=== PATIENT | female | born 1970 | race African-American/Black ===

== ENCOUNTER 2016-08-02 10:38 | Emergency (ER) | payer MEDICAID ==
[~2016-08-02] VITALS: Ht 165.1 cm; Wt 82.0 kg
[~2016-08-02 10:38] MED LIST: FLUT50DI; LORA5TAB8 PO; SIMV10TA6 PO
[2016-08-02 10:47] VITALS: BP 144/81
== END 2016-08-02 12:44 | disposition home or self-care (01) ==
LOC: ER 11:13
DX: K08.89 Other specified disorders of teeth and supporting structures (principal); R05 Cough; F17.210 Nicotine dependence, cigarettes, uncomplicated; E78.00 Pure hypercholesterolemia, unspecified; F12.10 Cannabis abuse, uncomplicated; R07.0 Pain in throat; H92.03 Otalgia, bilateral; Z98.890 Other specified postprocedural states
CPT/HCPCS: 71020; 93005; 99284

== ENCOUNTER 2017-03-15 08:40 | Emergency (ER) | payer MEDICAID ==
[~2017-03-15] VITALS: Ht 165.1 cm; Wt 77.0 kg
[2017-03-15] MEDS ORDERED: ALBUTEROL (0.5%) 2.5MG/0.5ML NEB HHN ONE ×2 (09:30→10:30)
[2017-03-15] MEDS ORDERED: PREDNISONE 20MG TABLET PO ONE (09:45)
[2017-03-15 12:11] VITALS: BP 132/67
== END 2017-03-15 12:00 | disposition home or self-care (01) ==
LOC: ER 08:46
DX: J40 Bronchitis, not specified as acute or chronic (principal); E78.00 Pure hypercholesterolemia, unspecified; F12.10 Cannabis abuse, uncomplicated; J84.10 Pulmonary fibrosis, unspecified; Z98.890 Other specified postprocedural states; Z88.3 Allergy status to other anti-infective agents; Z88.2 Allergy status to sulfonamides
CPT/HCPCS: 71010; 94640; 99284; J7512; J7611

== ENCOUNTER 2017-07-26 12:39 | Emergency (ER) | payer MEDICAID ==
[~2017-07-26] VITALS: Ht 165.1 cm; Wt 80.0 kg
[2017-07-26 14:58] LABS: BASOPHILS % 0.3 % (0.0-2.0); HEMATOCRIT. 49.4 % (36.0-48.0); HEMOGLOBIN. 16.3 g/dL (12.0-16.0); LYMPHOCYTES % 17.8 % (20.0-50.0); MEAN CORPUSCULAR HEMOGLOBIN 28.9 pg (28.0-32.0); MEAN CORPUSCULAR VOLUME 87.7 fL (81.0-99.0); MEAN PLATELET VOLUME 8.6 fl (7.4-10.4); MONOCYTES % 14.3 % (2.0-8.0); NEUTROPHILS % 67.6 % (40.0-76.0); PLATELET 233 x1000/uL (130-400); RED BLOOD CELL COUNT 5.64 mill/uL (4.2-5.4)
[2017-07-26] MEDS ORDERED: METHYLPREDNISOLONE SOD SUCC 125 MG/2 ML VIAL IV STA (14:58)
[2017-07-26] MEDS ORDERED: ALBUTEROL (0.083%) 2.5MG/3ML NEB HHN STA (14:58)
[2017-07-26 15:02] LABS: CHLORIDE 102 mEq/L (98-107); PROTHROMBIN TIME 10.7 sec (9.4-11.6)
[2017-07-26 15:04] LABS: CLARITY URINE TURBID (CLEAR); COLOR URINE RED (YELLOW); KETONES URINE NEGATIVE (NEGATIVE); LEUKOCYTE ESTERASE URINE 1+ (NEGATIVE); NITRITE URINE NEGATIVE (NEGATIVE); OCCULT BLOOD URINE 3+ (NEGATIVE); PROTEIN URINE 2+ (NEGATIVE); SPECIFIC GRAVITY URINE 1.029 (1.005-1.030); UROBILINOGEN URINE 0.2 E.U./dL (0.2-1.0)
[2017-07-26] MEDS ORDERED: KETOROLAC 30MG/ML VIAL IV ONE (15:15)
[2017-07-26 15:35] LABS: HCG SCREEN NEGATIVE
[2017-07-26 15:43] LABS: CREATINE KINASE 57 IU/L (26-192); CREATINE KINASE MB FRACTION < 0.5 ng/mL (0.5-3.6)
[2017-07-26] MEDS ORDERED: CEFTRIAXONE 1 G PREMIX 50 ML IV ONE (17:15)
[2017-07-26 18:50] VITALS: BP 132/75
== END 2017-07-26 18:54 | disposition home or self-care (01) ==
LOC: ER 14:35
DX: J20.9 Acute bronchitis, unspecified (principal); N39.0 Urinary tract infection, site not specified; S16.1XXA Strain of muscle, fascia and tendon at neck level, initial encounter; I10 Essential (primary) hypertension; M54.5 Low back pain; E78.00 Pure hypercholesterolemia, unspecified; E78.5 Hyperlipidemia, unspecified; F17.200 Nicotine dependence, unspecified, uncomplicated; Z88.2 Allergy status to sulfonamides; X58.XXXA Exposure to other specified factors, initial encounter; Y93.9 Activity, unspecified
CPT/HCPCS: 36415; 71045; 72125; 80053; 81003; 82550; 82553; 83880; 84484; 84703; 85025; 85610; 87804; 93005; 94640; 96365; 96375; 99285; J0696; J1885; J2930; J7611

== ENCOUNTER 2017-12-10 14:43 | Emergency (ER) | payer MEDICAID ==
[~2017-12-10] VITALS: Ht 162.6 cm; Wt 80.0 kg
[2017-12-10 15:54] VITALS: BP 144/90
== END 2017-12-10 16:22 | disposition home or self-care (01) ==
LOC: ER 15:00
DX: S40.262A Insect bite (nonvenomous) of left shoulder, initial encounter (principal); S80.862A Insect bite (nonvenomous), left lower leg, initial encounter; S80.861A Insect bite (nonvenomous), right lower leg, initial encounter; E78.00 Pure hypercholesterolemia, unspecified; W57.XXXA Bitten or stung by nonvenomous insect and other nonvenomous arthropods, initial encounter; Y93.89 Activity, other specified; Y92.89 Other specified places as the place of occurrence of the external cause; Y99.8 Other external cause status; Z98.890 Other specified postprocedural states; Z88.2 Allergy status to sulfonamides; Z88.1 Allergy status to other antibiotic agents
CPT/HCPCS: 99282

== ENCOUNTER 2018-01-31 14:19 | Emergency (ER) | payer MEDICAID ==
[~2018-01-31] VITALS: Ht 162.6 cm; Wt 79.0 kg
[2018-01-31] MEDS ORDERED: MECLIZINE 25MG TABLET PO ONE (19:00)
[2018-01-31] MEDS ORDERED: SODIUM CHLORIDE 0.9% 1,000 ML IV ONE (19:00)
[2018-01-31] MEDS ORDERED: KETOROLAC 60MG/2ML VIAL IM ONE (19:00)
[2018-01-31 19:06] LABS: CLARITY URINE CLOUDY (CLEAR); COLOR URINE YELLOW (YELLOW); KETONES URINE NEGATIVE (NEGATIVE); LEUKOCYTE ESTERASE URINE 2+ (NEGATIVE); NITRITE URINE NEGATIVE (NEGATIVE); OCCULT BLOOD URINE 3+ (NEGATIVE); PROTEIN URINE NEGATIVE (NEGATIVE); SPECIFIC GRAVITY URINE 1.021 (1.005-1.030); UROBILINOGEN URINE 0.2 E.U./dL (0.2-1.0)
[2018-01-31 19:51] LABS: BASOPHILS % 0.6 % (0.0-2.0); EOSINOPHILS % 1.7 % (0.0-5.0); HEMATOCRIT. 46.4 % (36.0-48.0); HEMOGLOBIN. 15.5 g/dL (12.0-16.0); LYMPHOCYTES % 28.5 % (20.0-50.0); MEAN CORPUSCULAR HEMOGLOBIN 29.4 pg (28.0-32.0); MEAN CORPUSCULAR VOLUME 88.3 fL (81.0-99.0); MEAN PLATELET VOLUME 8.5 fl (7.4-10.4); MONOCYTES % 5.3 % (2.0-8.0); NEUTROPHILS % 63.9 % (40.0-76.0); PLATELET 280 x1000/uL (130-400); RED BLOOD CELL COUNT 5.26 mill/uL (4.2-5.4); RED CELL DISTRIBUTION WIDTH 14.3 % (11.6-14.6)
[2018-01-31 19:57] LABS: CHLORIDE 105 mEq/L (98-107)
[2018-01-31] MEDS ORDERED: HYDROCODONE/ACETAMINOPHEN 10/325MG TABLET PO ONE (22:30)
[2018-01-31] MEDS ORDERED: CEFTRIAXONE SODIUM 1 G/VIAL IM ONE (22:30)
[2018-02-01 00:14] VITALS: BP 162/78
== END 2018-02-01 00:33 | disposition home or self-care (01) ==
LOC: ER 14:19
DX: M75.82 Other shoulder lesions, left shoulder (principal); R53.1 Weakness; N39.0 Urinary tract infection, site not specified; F17.200 Nicotine dependence, unspecified, uncomplicated; Z98.890 Other specified postprocedural states; Z88.2 Allergy status to sulfonamides; Z88.1 Allergy status to other antibiotic agents
CPT/HCPCS: 36415; 73030; 80053; 81003; 84484; 85025; 85379; 87086; 93005; 96360; 96361; 96372; 99285; J0696; J1885; J7030; Z7610; A4565; J8597

== ENCOUNTER 2019-01-25 09:39 | Emergency (ER) | payer MEDICAID ==
[~2019-01-25] VITALS: Ht 162.6 cm; Wt 82.0 kg
[2019-01-25] MEDS ORDERED: PREDNISONE 20MG TABLET PO STA (10:38)
[2019-01-25] MEDS ORDERED: ALBUTEROL (0.083%) 2.5MG/3ML NEB HHN STA (10:38)
[2019-01-25] MEDS ORDERED: IPRATROPIUM BROMIDE (0.02%) 0.5MG/2.5ML NEB HHN STA (10:38)
[2019-01-25 12:37] VITALS: BP 148/78
== END 2019-01-25 12:38 | disposition home or self-care (01) ==
LOC: ER 09:39
DX: J40 Bronchitis, not specified as acute or chronic (principal); H66.93 Otitis media, unspecified, bilateral
CPT/HCPCS: 71045; 94644; 99285; J7512; J7611; Z7610

== ENCOUNTER 2019-04-15 07:57 | Emergency (ER) | payer MEDICAID ==
[~2019-04-15] VITALS: Ht 165.1 cm; Wt 89.0 kg
[2019-04-15 08:10] VITALS: BP 150/76
[2019-04-15] MEDS ORDERED: KETOROLAC 30MG/ML VIAL IM ONE (09:15)
== END 2019-04-15 10:51 | disposition home or self-care (01) ==
LOC: ER 07:57
DX: M54.9 Dorsalgia, unspecified (principal); M54.32 Sciatica, left side; Z88.2 Allergy status to sulfonamides; Z88.8 Allergy status to other drugs, medicaments and biological substances
CPT/HCPCS: 72100; 81025; 96372; 99283; J1885; Z7610

== ENCOUNTER 2020-07-03 21:21 | Emergency (ER) | payer MEDICAID ==
[~2020-07-03] VITALS: Ht 165.1 cm; Wt 87.0 kg
[2020-07-03 22:07] VITALS: BP 175/81
[2020-07-03] MEDS ORDERED: KETOROLAC 30MG/ML VIAL IM ONE (22:45)
[2020-07-03] MEDS ORDERED: ACET-2708 MT (23:19)
== END 2020-07-03 23:41 | disposition home or self-care (01) ==
LOC: ER 21:21
DX: M54.5 Low back pain (principal); E78.00 Pure hypercholesterolemia, unspecified; Z98.890 Other specified postprocedural states; Z88.2 Allergy status to sulfonamides; W22.8XXA Striking against or struck by other objects, initial encounter; Y93.89 Activity, other specified; Y92.89 Other specified places as the place of occurrence of the external cause; Y99.8 Other external cause status
CPT/HCPCS: 72100; 96372; 99283; J1885

== ENCOUNTER 2021-01-15 20:24 | Emergency (ER) | payer MEDICAID ==
[~2021-01-15] VITALS: Ht 162.6 cm; Wt 88.0 kg
[~2021-01-15 20:24] MED LIST changes: +ACET-2708 MT; -FLUT50DI; -LORA5TAB8 PO; -SIMV10TA6 PO
[2021-01-15] MEDS ORDERED: PREDNISONE 20MG TABLET PO ONE (23:00)
[2021-01-15] MEDS ORDERED: BACITRACIN ZINC OINT UDPKT TOP ONE (23:00)
[2021-01-15] MEDS ORDERED: IBUPROFEN 800MG TABLET PO ONE (23:00)
[2021-01-15] MEDS ORDERED: ALBUTEROL (0.083%) 2.5MG/3ML NEB HHN ONE (23:00)
[2021-01-15] MEDS ORDERED: CLINDAMYCIN HCL 150MG CAPSULE PO SCH (23:15)
[2021-01-15] MEDS ORDERED: ALBU18HF2 IH (23:26)
[2021-01-15] MEDS ORDERED: CLIN300C12 MT (23:26)
[2021-01-15] MEDS ORDERED: P20 PO (23:26)
[2021-01-15] MEDS ORDERED: IBUP-2029 MT (23:26)
[2021-01-16 00:14] VITALS: BP 136/86
== END 2021-01-16 00:15 | disposition home or self-care (01) ==
LOC: ER 20:24
DX: M54.9 Dorsalgia, unspecified (principal); N61.1 Abscess of the breast and nipple; R05 Cough; R06.2 Wheezing; E78.00 Pure hypercholesterolemia, unspecified; Z88.2 Allergy status to sulfonamides; Z98.890 Other specified postprocedural states
CPT/HCPCS: 10060; 71045; 94640; 99284; J7512; Z7610

== ENCOUNTER 2021-12-08 11:31 | Emergency (ER) | payer MEDICAID ==
[~2021-12-08] VITALS: Ht 165.1 cm; Wt 84.0 kg
[~2021-12-08 11:31] MED LIST changes: +ALBU18HF2 IH; +CLIN-194 MT; +IBUP-2029 MT; +P20 PO
[2021-12-08 11:54] VITALS: BP 146/83
[2021-12-08] MEDS ORDERED: BENZ1LOZ73 MT ×3 (17:09→17:30)
[2021-12-08] MEDS ORDERED: GUAI-741 MT (17:30)
[2021-12-11 07:08] LABS: NEISSERIA GONORRHOEAE NAA Negative (Negative)
== END 2021-12-08 17:33 | disposition home or self-care (01) ==
LOC: ER 11:31
DX: B34.9 Viral infection, unspecified (principal); J84.10 Pulmonary fibrosis, unspecified; I10 Essential (primary) hypertension; E78.00 Pure hypercholesterolemia, unspecified; Z20.822 Contact with and (suspected) exposure to COVID-19; Z88.2 Allergy status to sulfonamides; Z98.890 Other specified postprocedural states
CPT/HCPCS: 71045; 87070; 87426; 87430; 87491; 87591; 99284